=== PATIENT | female | born 1940 | race Caucasian/White ===

== ENCOUNTER 2017-10-24 15:56 | Inpatient (IN) | payer MEDICARE ==
[~2017-10-24] VITALS: Ht 160 cm; Wt 57.0 kg
[~2017-10-24 15:56] MED LIST: ALENDRONATE35 MG PO; CALCIUM 500/VITAMIN PO; CIPRO XR500 MG PO; CLARITIN5 MG PO; FLAGYL500 MG PO; LORTAB 10 OR; SIMVASTATIN20 MG PO
[2017-10-24 16:38] VITALS: BP 142/61
[2017-10-24 16:50] LABS: HEMATOCRIT 42.5 % (37.0-47.0); HEMOGLOBIN 14.1 g/dl (12.0-16.0); MEAN CELL VOLUME 95.9 fL CALC (80.0-100.0); MEAN CORPUSCULAR HGB 31.8 pG CALC (26.0-32.0); MEAN CORPUSCULAR HGB CONC 33.2 g/L CALC (32.0-36.0); NEUT# 5.55 thou/uL (2.00-7.15); RED BLOOD COUNT 4.43 mill/uL (4.20-5.60); RED CELL DISTRI WIDTH 12.7 % (11.5-15.5)
[2017-10-24] MEDS ORDERED: FLONASE AL50 MCG/ACT NAB (16:50)
[2017-10-24] MEDS ORDERED: CENTRUM SILVER1 TA1 PO (16:51)
[2017-10-24] MEDS ORDERED: TRAMADOL HYDROC50 MG PO (16:52)
[2017-10-24] MEDS ORDERED: MELOXICAM7.5 MG PO (16:53)
[2017-10-24 17:02] LABS: ALBUMIN 4.8 g/dL (3.2-5.0); ALKALINE PHOSPHATASE 72 u/l (38-126); AMYLASE 53 u/l (30-110); ANION GAP 18 (6-22 (CALC)); BILIRUBIN, TOTAL 0.8 mg/dL (0.0-1.4); BUN 25 mg/dL (8-23); BUN/CREATININE RATIO 45 (12-20 (CALC)); CALCIUM 9.1 mg/dL (8.4-10.2); CARBON DIOXIDE 24 mmol/l (22-30); CHLORIDE 109 mmol/l (95-108); CREATININE 0.6 mg/dL (0.5-1.0); GFR > 60 ML/MIN (>=60 (CALC)); GFR FOR AFR.AMER. > 60 ML/MIN (>=60 (CALC)); GLUCOSE 120 mg/dL (82-115); LIPASE 45 u/l (23-300); POTASSIUM 3.9 mmol/l (3.5-5.1); SGOT/AST 31 u/l (9-36); SGPT/ALT 30 u/l (11-66); SODIUM 147 mmol/l (137-146); TOTAL PROTEIN 7.3 g/dL (6.3-8.2)
[2017-10-24 17:08] LABS: IMMATURE GRANULOCYTES 8.4 % (0.0-1.0)
[2017-10-24 19:00] VITALS: BP 110/53
[2017-10-25 04:46] VITALS: BP 104/50
[2017-10-25 05:50] LABS: URINE BILIRUBIN - DIPSTICK NEGATIVE (NEGATIVE); URINE BLOOD DIPSTICK SMALL (NEGATIVE); URINE COLOR YELLOW; URINE GLUCOSE - DIPSTICK NEGATIVE (NEGATIVE); URINE KETONE 15 mg/dL (NEGATIVE); URINE LEUK ESTERASE TRACE (NEGATIVE); URINE NITRITE - DIPSTICK NEGATIVE (Negative); URINE PH 5.5 (4.5-8.0); URINE PROTEIN - DIPSTICK TRACE mg/dL (NEG-TRACE); URINE SPECIFIC GRAVITY 1.025; URINE UROBILINOGEN - DIPSTICK 0.2 E.U./dL (0.2)
[2017-10-25 06:16] LABS: URINE CLARITY CLEAR
[2017-10-25 06:17] LABS: URINE BACTERIA RARE hpf; URINE MUCUS MANY hpf (NONE-FEW); URINE SQUAMOUS EPITHELIAL CELL FEW EPI/hpf (0-FEW); URINE WBC 20-50 WBC/hpf (0-5)
[2017-10-25 06:19] LABS: ANION GAP 14 (6-22 (CALC)); BUN 22 mg/dL (8-23); BUN/CREATININE RATIO 39 (12-20 (CALC)); CALCIUM 8.5 mg/dL (8.4-10.2); CARBON DIOXIDE 24 mmol/l (22-30); CHLORIDE 109 mmol/l (95-108); CREATININE 0.6 mg/dL (0.5-1.0); GFR > 60 ML/MIN (>=60 (CALC)); GFR FOR AFR.AMER. > 60 ML/MIN (>=60 (CALC)); GLUCOSE 94 mg/dL (82-115); POTASSIUM 3.7 mmol/l (3.5-5.1); SODIUM 144 mmol/l (137-146)
[2017-10-25 09:13] VITALS: BP 98/66
[2017-10-25] MEDS ORDERED: METRONIDAZOLE500 MG PO (16:34)
[2017-10-25] MEDS ORDERED: ZITHROMAX500 MG PO (16:34)
[2017-10-25] MEDS ORDERED: FLORASTOR250 M1 PO (16:35)
== END 2017-10-25 17:20 | disposition home or self-care (01) | DRG 392 ==
LOC: MS2 15:56
PROVIDERS: ADMIT Internal Medicine; ATTEND Internal Medicine
DX: K52.9 Noninfective gastroenteritis and colitis, unspecified (principal); K57.30 Diverticulosis of large intestine without perforation or abscess without bleeding; Z90.49 Acquired absence of other specified parts of digestive tract